=== PATIENT | male | born 1945 | race Caucasian/White ===

== ENCOUNTER 2018-06-01 12:55 | Outpatient (CLI) | payer OTHER | END 2018-06-01 23:59 | disposition home or self-care (01) | LOC: CARD DIAG 12:55 | PROVIDERS: ATTEND Orthopaedic Surgery | DX: I05.8 Other rheumatic mitral valve diseases (principal); I25.9 Chronic ischemic heart disease, unspecified; I25.2 Old myocardial infarction | CPT/HCPCS: 93306 ==

== ENCOUNTER 2024-12-19 13:00 | Inpatient (IN) | payer OTHER, MEDICARE ==
[~2024-12-19] VITALS: Ht 180.3 cm; Wt 106.1 kg
--- NOTE | 2024-12-19 13:42 | ELECTROCARDIOGRAPH REPORT ---
[facility] Test Date: 2024-12-19 Test Time: 13:11:24 Pat Name: MARILY SEARS Department: EMERGENCY ROOM Room: [place] [address] Gender: M It Project Coordinator: ROSY : 1945 Requested By: DANIELA HAWKINS Order Number: [id number] Reading MD: Dr. ELDA Brothers Measurements Intervals [place] Rate: 76 P: 48 NH: 154 QRS: -5 QRSD: 102 T: 44 QT: 432 QTc: 486 Interpretive Statements Sinus rhythm with PACs Multiform ventricular premature complexes Low voltage, precordial leads Borderline prolonged QT interval Baseline wander in lead(s) V2 Electronically Signed On 12-22-2024 17:59:[address] ELDA Brothers Please click the below link to view image of tracing.
--- NOTE | 2024-12-19 13:56 | RADIOLOGY REPORT ---
CHEST RADIOGRAPH Indication: CP Technique: DI CHEST,SINGLE VIEW Comparison: None FINDINGS: The cardiac silhouette is large. The lungs demonstrate perihilar and left basilar airspace opacities. The pulmonary vasculature is prominent. Small left pleural effusion. There is no pneumothorax. IMPRESSION: As above
--- NOTE | 2024-12-19 14:00 | Physician Documentation ---
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 He has been eating dinner with a his at [employer] after they finished she was going to pay the bill when she heard a gurgling sound coming from his throat she looked up out him and saw him stop breathing and became unresponsive for approximately 1 minute. He then began breathing again and returned to baseline quickly after that. He has had this happened once in the past for which he was placed in recovery position and recovered well. She reports that [facility] but she does not know the results Echocardiogram 2019 Overall LVEF is about 55-60%. Normal LV size and thickness. Overall systolic function appears low normal. Mildly dilated RV size with normal function. Trileaflet AV appears moderately sclerotic without stenosis or insufficiency. Mild MV annular calcification without stenosis. Trace regurgitation. TV appears normal with trace regurgitation. No pericardial effusion seen. Medication Reconciliation Allergies: Coded Allergies: No Known Allergies (Unverified , 12/19/24) Review of Systems All Other Systems at this time: Reviewed and Negative Physical Exam Physical Exam Vital Signs: Temperature: 97.5, Source: Oral, Heart Rate: 77, Respiratory Rate: 18, BP: 125/68, Pulse Oximetry: 90, Weight: 110.000 Oxygen Flow Rate: 0 Progress Results/Orders Reviewed/noted all lab results: Yes Results/Orders Orders - DANIELA HAWKINS MD Chest,Single View (12/19/24 13:37) Monitor (12/19/24 13:17) Saline Lock (12/19/24 13:17) Oxygen (12/19/24 13:17) Page Hospitalist (12/19/24 16:03) Fill Out Med Reconciliation (12/19/24 16:03) Completed Orders - DANIELA HAKWINS MD Chest,Single View (12/19/24 13:37) Cbc/Diff (12/19/24 13:17) BMP (12/19/24 13:17) PBNP (12/19/24 13:17) Electrocardiogram (12/19/24 13:17) Hs Troponin I W Calculations (12/19/24 13:17) Hs Troponin I W Calculations (12/19/24 15:17) Hs Troponin I W Calculations (12/19/24 16:17) Vital Signs 12/19/24 12/19/24 12/19/24 12/19/24 13:05 13:30 13:30 15:15 Temp 97.5 Pulse 77 59 Resp 18 12 19 B/P (MAP) 125/68 103/64 (77) Pulse Ox 90 97 97 O2 Delivery Nasal Cannula* O2 Flow Rate 0 4 0 FiO2 36 Laboratory Tests Test 12/19/24 13:29 12/19/24 15:19 12/19/24 16:59 12/19/24 17:14 White Blood Count 6.0 Red Blood Count 3.82 L Hemoglobin 13.6 L Hematocrit 39.6 L Mean Corpuscular Volume 103.9 H Mean Corpuscular Hemoglobin 35.6 H Mean Corpuscular Hemoglobin Concent 34.3 Red Cell Distribution Width 14.4 Platelet Count 163 Mean Platelet Volume 9.1 Neutrophils (%) (Auto) 71.7 Lymphocytes (%) (Auto) 19.2 L Monocytes (%) (Auto) 7.5 Eosinophils (%) (Auto) 1.1 Basophils (%) (Auto) 0.5 Neutrophils # (Auto) 4.3 Lymphocytes # (Auto) 1.1 Monocytes # (Auto) 0.4 Eosinophils # (Auto) 0.1 Basophils # (Auto) 0.0 CBC Comment Sodium Level 141 Potassium Level 3.2 L Chloride Level 105 Carbon Dioxide Level 24.8 Anion Gap 11 Blood Urea Nitrogen 17 Creatinine 1.02 Estimated GFR/1.73 m2 70 BUN/Creatinine Ratio 16.7 Glucose Level 155 H Calcium Level 7.8 L Troponin I High Sensitivity 6 10 15 Pro-B-Type Natriuretic Peptide 403 Albumin 3.0 L Chemistry Comments Troponin I High Sens Percent Delta 66 50 Troponin I Hi Sens Absolute Change 4 5 Hemoglobin A1c 5.4 Urine Comment Drug Screen Comment EKG/XRAY/CT/US/VASC/MRI EKG : Additional Comment EKG independently interpreted by myself time 1:11 p.m. indication syncope normal sinus rhythm rate 76 normal axis normal intervals no ST-elevation Medical Decision Making Additional information obtaine: family Findings 79-year-old male presenting for syncopal episode after dinner. He has history of dysphagia and his did hear a gurgling sound. He potentially may have aspirated and then vagal nerves however he has no clear choking episode. EKG here is nonacute. I will plan to admit him for syncope evaluated Differential Diagnosis Syncope cardiac arrest dysphagia stroke other causes of syncope Departure Disposition: ADMITTED INPATIENT Admitted to Inpatient Unit: to hospitalist Impression: Primary Impression: Syncope Qualified Codes: R55 - Syncope and collapse Referrals: NO PRIMARY CARE PROVIDER (PCP) Signature Scribe Signature: na Attestation: DANIELA Singh MD Dec 19, 2024 14:00
[2024-12-19 14:03] LABS: MEAN PLATELET VOLUME 9.1 FL (7.4-10.4); RED CELL DISTRIBUTION WIDTH 14.4 % (11.5-14.5)
[2024-12-19 14:29] LABS: CREATININE 1.02 MG/DL (0.60-1.10); PRO BRAIN NATRIURETIC PEPTIDE 403 PG/ML (0-450); TOTAL CARBON DIOXIDE 24.8 MMOL/L (24-32); eCRCL 63 ML/MIN; eGFR 70 ML/MIN
--- NOTE | 2024-12-19 17:02 | HISTORY AND PHYSICAL-Residence ---
History & Physical Providers to CC Resident Creating Document: MAYCO PICHARDO RES ~ History of Present Illness Reason for Admit\Complaint: Syncope History of Present Illness This is a 79 year old male with past medical history hypertension, gout, hyperlipidemia, [place] presented to the ED with an episode of syncope. As patient was tired and sleepy, most of the history was taken from his who was present at the bedside. According to his , both of them were at [employer] at around 11:15 p.m. this afternoon having lunch. Patient was doing fine, had his food along with half a glass of beer. When she was ready to pay the check, the noticed that patient had a gurgling sound and was about to pass out. Patient was sitting on a chair and his neck went back and he was about to fall back from his chair when his got up and got him from behind preventing him from falling back. She immediately called for help, when 2 men came and immediately laid the patient flat on the ground, tried to shake him and performed a sternal rub, patient regained back consciousness. reports that patient lost consciousness for about 20-25 seconds. Patient was slightly confused after regaining by consciousness and kept saying that he wanted to go back home, however the restautant immediately called 911 and he was brought to the hospital. reports that patient has prior to 3 episodes of syncope in the past, 1 of them was due to CVA, the the time he had syncopal attack, she was informed that the patient was in AFib. denies any episodes of seizure-like activity, no urinary incontinence, fecal incontinence, tongue biting. Patient says that he felt lightheaded, and nauseous and clammy before the syncopal episode and denies any other complaints of chest pain, palpitations, shortness of breath, headache, weakness, sweating, vomiting. Allergies: Coded Allergies: No Known Allergies (Unverified , 12/19/24) Past Medical History Past Medical History [place] at the age of 29 Hypertension Gout Hyperlipidemia Past Surgical History Surgical History Comment Left knee surgery Back surgery Past Social History Social History Comment Patient used to drink a lot years ago, was drinking on and off since the last couple of years, did not drink much at all since the last month. Patient does not smoke but chews tobacco No other illicit drug use Patient's PCP at [facility] Patient is independent with activities of daily living Patient lives at home with his . Family history- Dad of heart attack at the age of 59 Mother had 2 strokes in her 60s. ROS All Other Systems: Reviewed and Negative Exam Vitals: Vital Signs Date Time Temp Pulse Resp B/P (MAP) Pulse Ox O2 Delivery O2 Flow Rate FiO2 12/19/24 15:15 59 19 103/64 (77) 97 0 12/19/24 13:05 97.5 General: Awake , alert and oriented to time,place, person, not in distress HEENT: Atraumatic, normocephalic, PERRLA, EOMI, anicteric sclera ; pink conjunctiva, moist mucos membranes Neck: Trachea midline. Supple, normal range of motion, no JVD, no lymphadenopathy Chest and Respiratory: Equal breath sounds bilaterally, no tachypnea, wheezing, ronchi,rubs .Chest wall is symmetric and without deformity. Cardiac: S1, S2 heard,Regular rate and rhythm, no murmurs ,no gallops, no rubs. Abdomen: Soft, obese, No guarding or rigidity, normal bowel sounds x4 quadrant, no hepatosplenomegaly MSK: Range of motion of all extremities are normal. There is no joint pain or joint swelling or joint erythema. There is no muscle pain or tenderness or swelling. Extremities: warm, well-perfused, No cyanosis, clubbing, 2+ pulses felt Neurological: Mental status exam: alert and consciousness, orientation, memory, speech - Cranial nerve test: Cranial nerves II-XII intact. - Motor system: normal tone, Power 5/5, no involuntary movements - Sensory system: Intact - Reflex testing: Biceps, triceps and knee reflexes 2+ - Cerebellar: Normal Skin: Warm and dry Psychiatry: Affect and mood are normal Diagnostic Data Last Recorded Lab Results: 12/19/24 1329 12/19/24 1329 Advance Care Planning Advanced Care plannin - 30 Minutes (DNR) Additional Plan Syncope Likely due to orthostatic vs cardiac vs neurologic vs autonomic dysfunction -Patient's vitals are stable BP- 125/68, HR- 50s-70s -Patient's electrolytes -sodium normal, mild hypokalemia -Glucose within normal limits, not hypoglycemic -proBNP normal- 403 -Chest x-ray shows enlarged cardiac silhouette. The lungs demonstrate perihilar and left basilar airspace opacities. The pulmonary vasculature is prominent. Small left pleural effusion. There is no pneumothorax. -EKG showed sinus rhythm with premature ventricular complexes, no ST elevations, depressions, no T-wave changes. -Patient on telemetry monitoring -CT head ordered. Follow-up -Echocardiogram, TSH, U tox, vascular carotid ultrasound, orthostatic vitals ordered. -Urine analysis, lipid profile, HbA1c ordered. Mild hypokalemia- k-3.2 Patient on potassium replacement protocol. Macrocytic anemia- Hb- 13.6, MCV- 103.9 Could be likely due to alcohol consumption. B12, levels ordered. BPH- Patient has a urology appointment in January outpatient. Hyperlipidemia- Lipid profile ordered Continue home medications once med rec is done. Code status: DNR DVT prophylaxis: SubQ heparin Analgesia/sedation: Morphine Line/tube: PIV Nutrition: Regular diet Prognosis: Guarded Disposition- patient on syncopal workup. He is on telemetry monitoring admitted to PCU. Patient seen, examined and discussed with the attending MD Dr Mcmahan. Mayoc Pichardo PGY-1 Date of Service: Dec 19, 2024 Billing Provider: KAREN MCMAHAN MD Common Visit Codes: [id number] INP/OBS CARE (HIGH) Secondary Visit Codes: [id number] CARE PLAN 30 MINUTES MAYCO PICHARDO, RES Dec 19, 2024 17:02 KAREN MCMAHAN MD Dec 21, 2024 06:34
[2024-12-19] MEDS ORDERED: potassium Cl 40MEQ/1/2NS 520ml 520 ML IV PRN (17:05)
[2024-12-19] MEDS ORDERED: mag hydrox/Alum hydrox/simeth 30ml oral suspension PO PRN (17:05)
[2024-12-19] MEDS ORDERED: HYDROcodone/acetaminophen 5mg/325mg tablet PO PRN (17:05)
[2024-12-19] MEDS ORDERED: magnesium sulf-water 4G/100mL 100 ML IV PRN (17:05)
[2024-12-19] MEDS ORDERED: magnesium hydroxide 30ml (MOM) UD suspension PO PRN (17:05)
[2024-12-19] MEDS ORDERED: magnesium sulf-water 2g/50mL 50 ML IV PRN (17:05)
[2024-12-19] MEDS ORDERED: ondansetron/PF 4mg/2ml inj IV PRN (17:05)
[2024-12-19] MEDS ORDERED: magnesium Cl slow-release 64mg tablet PO PRN (17:05)
[2024-12-19] MEDS ORDERED: potassium Cl 20 mEq SR tablet PO PRN (17:05)
[2024-12-19 17:44] LABS: LEUKOCYTE ESTERASE ,URINE NEGATIVE (Neg); NITRITES, URINE NEGATIVE (Neg); OCCULT BLOOD,URINE NEGATIVE (Neg)
[2024-12-19 17:49] LABS: UA COLLECTION TYPE URINAL
[2024-12-19] MEDS: normal saline 1000ml 1,000 ML IV SCH (18:02)
[2024-12-19] MEDS ORDERED: ROSU10TA98 PO (18:15)
[2024-12-19] MEDS ORDERED: ATOR10TA87 PO (18:15)
[2024-12-19] MEDS ORDERED: TAMS-55 PO (18:15)
[2024-12-19] MEDS ORDERED: FURO10VI51 PO (18:15)
[2024-12-19] MEDS ORDERED: ASPI-1264 PO (18:15)
[2024-12-19] MEDS ORDERED: MELO-102 PO (18:15)
[2024-12-19] MEDS ORDERED: ALLO300T8 PO (18:15)
[2024-12-19] MEDS ORDERED: MIRT-142 PO (18:15)
[2024-12-19] MEDS ORDERED: COLC0.6C3 PO (18:15)
[2024-12-19] MEDS ORDERED: FOLI0.4T6 PO (18:15)
[2024-12-19 18:25] LABS: URINE AMPHETAMINE SCREEN NEGATIVE (Neg); URINE BARBITUATE SCREEN NEGATIVE (Neg); URINE BENZODIAZEPINES SCREEN NEGATIVE (Neg); URINE CANNABINOID SCREEN NEGATIVE (Neg); URINE COCAINE SCREEN NEGATIVE (Neg); URINE METHADONE SCREEN NEGATIVE (Neg); URINE OPIATE SCREEN NEGATIVE (Neg); URINE PHENCYCLIDINE SCREEN NEGATIVE (Neg)
--- NOTE | 2024-12-19 18:26 | RADIOLOGY REPORT ---
CLINICAL HISTORY: POSSIBLE CVA TECHNIQUE: Helical scanning was performed of the head from the skull base to the vertex. Multiplanar reconstructions were performed. This exam was performed according to our departmental dose optimization program. Up-to-date CT equipment and radiation dose reduction techniques are utilized as appropriate. CTDI 65 DLP 65 1320 COMPARISON: None FINDINGS: There is no evidence for acute intracranial hemorrhage, acute ischemic changes, mass, mass effect, or extra-axial fluid collection. There is no hydrocephalus or midline shift. There is no effacement of the cerebral sulci and basal subarachnoid cisterns. The moody-white matter differentiation is well maintained. The imaged paranasal sinuses are clear. There is an old left thalamic infarct. There has been bilateral cataract extraction. IMPRESSION: No acute intracranial abnormality seen. Old left thalamic infarct.
[2024-12-19] MEDS: potassium Cl 20 mEq SR tablet PO PRN (20:05)
[2024-12-19] MEDS: K and/or MAG REPLACEMENT MC SCH (20:07)
[2024-12-19 20:30] VITALS: BP_SYST 110; BP_SYST 116; BP_SYST 125; BP_DIAS 56; BP_DIAS 63; BP_DIAS 74; PULSE 63; PULSE 65; PULSE 88; RESP 16; TEMP 98.5; O2SAT 65; O2SAT 95
[2024-12-19] MEDS: docusate sod 100mg capsule PO SCH (20:50)
[2024-12-19] MEDS: heparin, porcine 5000 units/ml vial SQ SCH (20:51)
[2024-12-19 22:00] VITALS: BP 108/57; PULSE 61; RESP 19; TEMP 98.6; O2SAT 95
[2024-12-20] VITALS (7 sets, daily range): BP systolic 96–123; BP diastolic 35–72; PULSE 57–89; RESP 13–20; TEMP 96.3–98.9; O2SAT 94–98
[2024-12-20 06:53] LABS: MEAN PLATELET VOLUME 9.0 FL (7.4-10.4); RED CELL DISTRIBUTION WIDTH 14.5 % (11.5-14.5)
[2024-12-20 07:20] LABS: CHOL/HDL RATIO 3.0 (0.00-4.99); CREATININE 0.88 MG/DL (0.60-1.10); LDL CHOLESTEROL 55 MG/DL (50-100); TOTAL CARBON DIOXIDE 24.1 MMOL/L (24-32); eCRCL 73 ML/MIN; eGFR 84 ML/MIN
[2024-12-20] MEDS ORDERED: ASPI-1264 PO (09:20)
[2024-12-20] MEDS: MELOXICAM 7.5 MG TABLET PO SCH (09:44)
--- NOTE | 2024-12-20 11:05 | VASCULAR REPORT ---
Indication: Syncope Technique: Real-time ultrasound images of the neck vessels with moody-scale, color and wave Doppler were obtained. Comparison: None Findings: There is moderate to extensive plaque most pronounced within the bilateral carotid bulb/proximal ICA. The following peak systolic velocities were recorded in cm/sec: Right internal carotid: 135 Right common carotid: 90 Right external carotid: 106 Right internal/common carotid ratio: 1.5 Left internal carotid: 166 Left common carotid: 96 Left external carotid: 197 Left internal/common carotid ratio: 1.8 Right vertebral artery: Patent with normal antegrade direction of flow. Left vertebral artery: Patent with normal antegrade direction of flow. Impression: Approximately 50-69% stenosis of the bilateral internal carotid arteries by velocity criteria. Recommend CT angiogram neck to evaluate. Moderate to extensive plaque within the bilateral carotid bulb/proximal ICA.
--- NOTE | 2024-12-20 14:49 | PROGRESS NOTE- Residence ---
Progress Note - Resident Providers to CC Resident Creating Document: MAYCO PICHARDO, RES ~ Antibiotic Timeout Antibiotic Ordered?: No Subjective Patient was seen and examined at the bedside today. Patient is feeling well, not dizzy, not lightheaded, has no new complaints. No acute overnight events reported Objective Vital Signs Date Time Temp Pulse Resp B/P (MAP) Pulse Ox O2 Delivery O2 Flow Rate FiO2 12/20/24 08:00 13 95 Room Air 12/20/24 06:00 61 12/20/24 02:00 96.3 104/50 (68) 12/19/24 19:37 0 12/19/24 13:30 36 Result Diagram: 12/20/24 0557 12/20/24 0557 Awake , alert and oriented to time,place, person, not in distress HEENT: Atraumatic, normocephalic, PERRLA, EOMI, anicteric sclera ; pink conjunctiva, moist mucos membranes Neck: Trachea midline. Supple, normal range of motion, no JVD, no lymphadenopathy Chest and Respiratory: Equal breath sounds bilaterally, no tachypnea, wheezing, ronchi,rubs .Chest wall is symmetric and without deformity. Cardiac: S1, S2 heard,Regular rate and rhythm, no murmurs ,no gallops, no rubs. Abdomen: Soft, obese, no tenderness no rigidity, MSK: Range of motion of all extremities are normal. There is no joint pain or joint swelling or joint erythema. There is no muscle pain or tenderness or swelling. Extremities: warm, well-perfused, No cyanosis, clubbing, 2+ pulses felt Neurological: Mental status exam: alert and consciousness, orientation, memory, speech - Cranial nerve test: Cranial nerves II-XII intact. - Motor system: normal tone, Power 5/5, no involuntary movements - Sensory system: Intact - Reflex testing: Biceps, triceps and knee reflexes 2+ - Cerebellar: Normal Skin: Warm and dry Psychiatry: Affect and mood are normal Plan Plan Syncope Likely due to neurologic vs autonomic dysfunction Possible seizures -suspecting seizure as patient had an episode of urinary incontinence and post ictal confusion. For which we ordered any EEG -Patient's vitals are stable BP- 125/68, HR- 50s-70s -Orthostatics negative -Patient's electrolytes -sodium normal, potassium normal -HbA1c- 5.4. Glucose within normal limits. -lipid panel normal -proBNP normal- 403 -EKG showed sinus rhythm with premature ventricular complexes, no ST elevations, depressions, no T-wave changes. -in view of possible seizure, EEG ordered. -patient's telemetry showed sinus rhythm with no evidence of arrhythmias. -CT head shows no acute intracranial abnormality. Old left thalamic infarct. MRI ordered, follow-up -carotid artery ultrasound shows Approximately 50-69% stenosis of the bilateral internal carotid arteries by velocity criteria. Moderate to extensive plaque within the bilateral carotid bulb/proximal ICA. We are following up with CTA neck. -TSH within normal limits -U tox negative, urine analysis negative for UTI Mild hypokalemia resolved k-3.7 Patient on potassium replacement protocol. We will continue to monitor her labs Macrocytic anemia- Hb- 13.6, MCV- 103.9 Could be likely due to alcohol consumption. B12, levels ordered. BPH- Patient has a urology appointment in January outpatient. Patient on tamsulosin 0.4 mg Hyperlipidemia- Lipid profile normal Continue atorvastatin 40 mg Gout Not in acute flare Patient on allopurinol 300 mg Code status: DNR DVT prophylaxis: SubQ heparin Analgesia/sedation: Morphine Line/tube: PIV Nutrition: Regular diet Prognosis: Guarded Disposition- patient on syncopal workup. He is on telemetry monitoring admitted to PCU. Patient seen, examined and discussed with the attending MD Dr Mcmahan. Mayco Pichardo PGY-1 Date of Service: Dec 20, 2024 Billing Provider: KAREN MCMAHAN MD Common Visit Codes: [id number] INP/OBS CARE(HIGH) MAYCO PICHARDO, RES Dec 20, 2024 14:49 KAREN MCMAHAN MD Dec 21, 2024 06:35
--- NOTE | 2024-12-20 18:20 | PROCEDURE NOTE ---
Procedure Note Providers to CC ~ Interpretation: [place] EEG Note # Demographics Type of EEG Read: - Routine EEG - video Patient Location: Inpatient First Name: Jean-Claude Last Name: Yariel Date of : 1945 Age: 79 Gender: Male Facility: [facility] Time of Initial Page (): 12/20/2024 13:28 First Contact with Site (): 12/20/2024 13:28 # EEG Interpretation Start Time of EEG Read (): 12/20/2024 13:54 Stop Time of EEG Read (): 12/20/2024 14:17 Duration: 0h 23m Technical Details: - The EEG electrodes were placed using the standard International 10-20 system of electrode placement. Video and an accessory EKG lead were used during the course of this study. - This study was recorded using the [employer] EEG software Indication: - seizure # Description Phases Captured: - drowsy Predominant Frequencies: - theta (4-7 Hz) - abundant (50-89%) Amplitude: normal Reactivity: yes Variability: yes Continuity: continuous # Abnormalities Epileptiform Abnormalities: - NOT present Focal Slowing: no Seizure: - NOT present Artifact: Significant lead artifact limiting interpretation. # Impression Impression: abnormal 1. Diffuse Slowing Significant lead artifact limiting interpretation. # Clinical Correlation Clinical Correlation: Diffuse slowing is non-specific and may be seen in the setting of diffuse cerebral dysfunction; such as toxic/metabolic/infectious encephalopathy or heavily sedating medication use. # Logistics Telemedicine: remote EEG review: EEG reviewed remotely # Demographics First Name: Jean-Claude Last Name: Yariel Facility: [facility] VAL KING MD Dec 20, 2024 18:20
--- NOTE | 2024-12-20 18:31 | RADIOLOGY REPORT ---
EXAM: CT CTA NECK W/ IV CONTRAST DATE OF SERVICE: 12/20/2024 04:53 PM ORDERING PHYSICIAN: KAREN MCMAHAN RES REASON FOR EXAM: CAROTID ARTERY STENOSIS TECHNIQUE: CTA of the neck was performed after the administration of contrast . Axial images of the head and neck are obtained. Coronal and sagittal images were then reformatted for review. MIP reformats were obtained and reviewed. COMPARISON: Carotid ultrasound from today FINDINGS: FINDINGS: The right common carotid artery demonstrates no high-grade stenosis. There is moderate calcification of the right carotid bulb. Right internal carotid artery demonstrates moderate stenosis of the proximal right ICA, approximately 60% stenosis The left common carotid artery demonstrates moderate calcification of the left carotid bulb Left internal carotid artery demonstrates mild, less than 50% stenosis of the proximal left ICA The right vertebral artery demonstrates no high-grade stenosis. The left vertebral artery demonstrates no high-grade stenosis. Small left mastoid effusion. Severe cervical degenerative disc disease. IMPRESSION: Moderate calcification of the bilateral carotid bulbs. Approximately 60% stenosis of the proximal right ICA. Less than 50% stenosis of the proximal left ICA. Small left mastoid effusion.
--- NOTE | 2024-12-20 19:38 | CARDIOLOGY REPORT ---
APPROVED REPORT EXAM: Comprehensive 2D, Doppler, and color-flow Echocardiogram. Patient Location: [facility] Blood Pressure: 104/50 mmHg Heart Rate: 72 bpm Rhythm: NSR Indications Syncope Hypertension Hx ID Atrial Fibrillation No paediatric thoracic physician No previous echo 2D Dimensions LA Diam 4.6 cm IVSd 1.3 (0.7-1.1cm) LVDd 5.6 cm PWd 1.2 (0.7-1.1cm) IVSs 1.8 (0.8-1.2cm) LVDs 3.7 (2.5-4.0cm) Aortic Root(2D) 3.6 cm PWs 1.6 (0.8-1.2cm) LVOT Diameter 2.11 (1.8-2.4cm) LVEF(%) 63.4 (>50%) Ao Asc Diam. 3.17 cm IVC 15.52 mm FS (%) 34.8 % SV 97.5 ml CO 6.1 L/min M-Mode Dimensions Aortic Cusp Exc 1.28 (1.5-2.0cm) MV EPSS 1.1 (<0.5cm) Aortic Valve AoV Peak Rodrigue. 246.7 cm/s AoV VTI 51.0 cm AO Peak GR. 24.3 mmHg AO Mean GR. 11 mmHg LVOT VTI 31.41 cm LVOT Peak Rodrigue. 129.4 cm/s SUMMER(VTI)/BSA 2.15 cm2/m2 SUMMER (VTI) 2.15 cm2 AI P 1/2 Time 392 ms AV DI 0.62 % Mitral Valve MV E Velocity 78.9 cm/s MV Peak Gr. 6 mmHg MV DECEL TIME 208 ms MV A Velocity 100.4 cm/s MV PHT 68 ms E/A Ratio 0.8 MVA (PHT) 3.24 cm2 MV VMax 120.1 cm/s TDI Medial E' P. V 7.70 cm/s E/Medial E' 10.2 Tricuspid Valve TR P. Velocity 286 cm/s RAP ESTIMATE 10 mmHg TR Peak Gr. 33 mmHg RVSP 43 mmHg Pulmonary Vein S1 Velocity 71.8 cm/s D2 Velocity 29.9 cm/s PVa Velocity 28.2 cm/s PVa Duration 92 msec LEFT VENTRICLE Normal LV size and function. Mild concentric hypertrophy. Over LVEF is 65%. RIGHT VENTRICLE RV appears mildly dilated with normal contractility. RVSP is estimated at 43 mmHG. ATRIA Left atrium is moderately dilated. AORTIC VALVE Trileaflet AV is calcified with no significant stenosis. Moderate insufficiency. MITRAL VALVE MV is thickened with mild annular calcification and no stenosis. Mild mitral regurgitation. TRICUSPID VALVE The tricuspid valve is normal in structure. Trace tricuspid regurgitation. PULMONIC VALVE The pulmonary valve is normal in structure. Trace pulmonic insufficiency. GREAT VESSELS The aortic root is normal in size. The ascending aorta is normal in size. The IVC is normal in size and collapses >50% with inspiration. PERICARDIUM There is no pericardial effusion. Other Information Study Quality: Adequate Conclusion Over LVEF is 65%. Normal LV size and function. Mild concentric hypertrophy. RV appears mildly dilated with normal contractility. RVSP is estimated at 43 mmHG. Trileaflet AV is calcified with no significant stenosis. Moderate insufficiency. Mild mitral regurgitation. Trace tricuspid regurgitation. Trace pulmonic insufficiency. There is no pericardial effusion.
[2024-12-21] VITALS (9 sets, daily range): BP systolic 102–125; BP diastolic 46–108; PULSE 52–84; RESP 12–23; TEMP 97.6–98.1; O2SAT 91–95
[2024-12-21 06:01] LABS: MEAN PLATELET VOLUME 8.6 FL (7.4-10.4); RED CELL DISTRIBUTION WIDTH 14.3 % (11.5-14.5)
[2024-12-21 06:16] LABS: CREATININE 0.90 MG/DL (0.60-1.10); TOTAL CARBON DIOXIDE 24.6 MMOL/L (24-32); eCRCL 71 ML/MIN; eGFR 81 ML/MIN
--- NOTE | 2024-12-21 15:19 | RADIOLOGY REPORT ---
CLINICAL HISTORY: POSSIBLE TIA TECHNIQUE: Routine multiplanar imaging of the brain was performed without gadolinium contrast. COMPARISON: CT CT HEAD on DOS: 12/19/24 FINDINGS: There is no abnormal restricted diffusion to suggest acute infarction. There is mild brain volume loss. Scattered T2 hyperintense foci within the white matter both cerebral hemispheres is most compatible with a mild burden of nonspecific chronic small vessel ischemic change. There is an old left thalamic infarct. There is no evidence for acute ischemic changes, mass, mass effect, or extra- axial fluid collection. There is no hydrocephalus or midline shift. The cerebral sulci and subarachnoid cisterns are not effaced. There is a small left mastoid effusion. There has been bilateral cataract extraction. The midline structures, including the corpus callosum, are unremarkable. The intracranial flow voids are maintained. IMPRESSION: No acute intracranial abnormality seen. No evidence for acute infarct. Mild brain volume loss. Mild chronic small vessel ischemic change. Old left thalamic infarct. Small left mastoid effusion. Bilateral cataract extraction.
--- NOTE | 2024-12-21 19:22 | PROGRESS NOTE- Residence ---
Progress Note - Resident Providers to CC Resident Creating Document: MAYCO PICHARDO, RES ~ Antibiotic Timeout Antibiotic Ordered?: No Subjective Patient was seen and examined at the bedside today. Patient is feeling well, not dizzy, not lightheaded, has no new complaints. No acute overnight events reported Objective Vital Signs Date Time Temp Pulse Resp B/P (MAP) Pulse Ox O2 Delivery O2 Flow Rate FiO2 12/21/24 11:00 98.0 70 14 125/71 (89) 94 Room Air 12/19/24 19:37 0 12/19/24 13:30 36 Result Diagram: 12/21/24 0543 12/21/24 0543 Awake , alert and oriented to time,place, person, not in distress HEENT: Atraumatic, normocephalic, PERRLA, EOMI, anicteric sclera ; pink conjunctiva, moist mucos membranes Neck: Trachea midline. Supple, normal range of motion, no JVD, no lymphadenopathy Chest and Respiratory: Equal breath sounds bilaterally, no tachypnea, wheezing, ronchi,rubs .Chest wall is symmetric and without deformity. Cardiac: S1, S2 heard,Regular rate and rhythm, no murmurs ,no gallops, no rubs. Abdomen: Soft, obese, no tenderness no rigidity, MSK: Range of motion of all extremities are normal. There is no joint pain or joint swelling or joint erythema. There is no muscle pain or tenderness or swelling. Extremities: warm, well-perfused, No cyanosis, clubbing, 2+ pulses felt Neurological: Mental status exam: alert and consciousness, orientation, memory, speech - Cranial nerve test: Cranial nerves II-XII intact. - Motor system: normal tone, Power 5/5, no involuntary movements - Sensory system: Intact - Reflex testing: Biceps, triceps and knee reflexes 2+ - Cerebellar: Normal Skin: Warm and dry Psychiatry: Affect and mood are normal Plan Plan Syncope Likely due to autonomic dysfunction Possible seizures -stroke ruled out -suspecting seizure as patient had an episode of urinary incontinence and post ictal confusion. For which we ordered any EEG -Patient's vitals are stable BP- 125/68, HR- 50s-70s -Orthostatics negative -Patient's electrolytes -sodium normal, potassium normal -HbA1c- 5.4. Glucose within normal limits. -lipid panel normal -proBNP normal- 403 -EKG showed sinus rhythm with premature ventricular complexes, no ST elevations, depressions, no T-wave changes. -in view of possible seizure, EEG ordered. -patient's telemetry showed sinus rhythm with no evidence of arrhythmias. -CT head shows no acute intracranial abnormality. Old left thalamic infarct. MRI ordered, follow-up -carotid artery ultrasound shows Approximately 50-69% stenosis of the bilateral internal carotid arteries by velocity criteria. Moderate to extensive plaque within the bilateral carotid bulb/proximal ICA. We are following up with CTA neck. -TSH within normal limits -U tox negative, urine analysis negative for UTI -MRI head- No acute intracranial abnormality seen. No evidence for acute infarct. Mild brain volume loss. Mild chronic small vessel ischemic change. Old left thalamic infarct. -tele neurology has been consulted. Follow-up. Mild hypokalemia resolved k-3.9 Patient on potassium replacement protocol. We will continue to monitor her labs Macrocytic anemia- Hb- 13.6, MCV- 103.9 Could be likely due to alcohol consumption. B12, levels ordered. BPH- Patient has a urology appointment in January outpatient. Patient on tamsulosin 0.4 mg Hyperlipidemia- Lipid profile normal Continue atorvastatin 40 mg Gout Not in acute flare Patient on allopurinol 300 mg Code status: DNR DVT prophylaxis: SubQ heparin Analgesia/sedation: Morphine Line/tube: PIV Nutrition: Regular diet Prognosis: Guarded Disposition- patient on syncopal workup. He is on telemetry monitoring admitted to PCU. In view of possible seizures, tele neurology has been consulted. Patient seen, examined and discussed with the attending MD Dr Mcmahan. Mayco Pichardo PGY-1 Date of Service: Dec 21, 2024 Billing Provider: KAREN MCMAHAN MD Common Visit Codes: 42996-[id number] INP/OBS CARE(HIGH) MAYCO PICHARDO, RES Dec 21, 2024 19:22 KAREN MCMAHAN MD Dec 23, 2024 07:12
--- NOTE | 2024-12-21 23:31 | CONSULTATION REPORT ---
History of Present Illness Providers to CC ~ Reason for Admit\Admit Dx: Syncope Allergies: Coded Allergies: No Known Allergies (Unverified , 12/19/24) Home Medications Home Medications Active Aspirin* (Aspirin) 325 Mg Tablet 1 Tab PO DAILY 30 Days Reported Lasix (Furosemide) 10 Mg/Ml Vial 10 Mg PO DAILY Folic Acid* (Folic Acid) 0.4 Mg Tablet 1 Tab PO DAILY 30 Days Flomax* (Tamsulosin HCl) 0.4 Mg Cap.sr.24h 1 Cap PO DAILY 30 Days Lipitor* (Atorvastatin Calcium) 10 Mg Tablet 1 Tab PO DAILY 30 Days Remeron (Mirtazapine) 15 Mg Tablet 15 Mg PO Meloxicam 15 Mg Tablet 1 Tab PO DAILY 30 Days Colchicine 0.6 Mg Capsule 1 Cap PO PRN 30 Days Rosuvastatin Calcium 10 Mg Tablet 1 Tab PO DAILY 30 Days Allopurinol 300 Mg Tablet 1 Tab PO DAILY 30 Days Physical Exam Last Vital Signs Recorded: Temperature: 98.1, Source: Oral, Heart Rate: 68, Respiratory Rate: 16, BP: 113/71, Pulse Oximetry: 95, Weight: 106.100 Results Diagram Lab Result Diagram: 12/21/24 0543 12/21/2443 Assessment/Plan Additional Plan [facility] Neuro Note # Demographics Consult Type: General Neurology Patient Location: Inpatient First Name: Jean-Claude Last Name: Yariel Date of : 1945 Age: 79 Gender: Male Facility: [facility] Time of Initial Page (): 12/21/2024 23:07 First Contact with Site (): 12/21/2024 23:07 # HPI History: 79-year-old who said he got light-headed then woke up on the floor. his said he was out for about 45 seconds. patient said when he came to he felt okay and was ready to go. no previous history of stroke or seizures. He denies any headache or vision changes with the episode. He has had about 3 previous episodes in the past # Scores Time of exam and NIHSS (): 12/21/2024 23:09 Level of Consciousness 1a: [0] = Alert; keenly responsive LOC Questions 1b: [0] = Answers both questions correctly LOC Commands 1c: [0] = Performs both tasks correctly Best Gaze 2: [0] = Normal Visual 3: [0] = No visual loss Facial Palsy 4: [0] = Normal symmetrical movements Motor Arm Left 5a: [0] = No drift Motor Arm Right 5b: [0] = No drift Motor Leg Left 6a: [0] = No drift Motor Leg Right 6b: [0] = No drift Limb Ataxia 7: [0] = Absent Sensory 8: [0] = Normal Best Language 9: [0] = No aphasia Dysarthria 10: [0] = Normal Extinction and Inattention 11: [0] = No abnormality NIHSS Total: 0 # PMH-FH-SH Past Medical History: - hypertension - hyperlipidemia [place] # Data Time Head CT personally read by me (Pixplit): 12/21/2024 23:[address]: - no bleed - per radiologist read Time CTA personally reviewed by me (Pixplit): 12/21/2024 23:22 CTA Neck: patent vessels MRI: no acute ischemia # Assessment Impression: - Syncope Suspect may be more cardiac in etiology vs neurologic. CTA neck neg, MRI brain neg, EEG neg for seizures # Plan Diagnostic Test: telemetry, check orthostatics, would strongly consider tilt-table testing if available Other: - If patient has any neurological deterioration please call me back immediately # Demographics First Name: Jean-Claude Last Name: Yariel Facility: [facility] DILIA AYOUB Jr., MD Dec 21, 2024 23:31
[2024-12-22 06:00] VITALS: BP 144/57; PULSE 56; RESP 16; TEMP 98.6; O2SAT 95
[2024-12-22 07:02] LABS: MEAN PLATELET VOLUME 8.4 FL (7.4-10.4); RED CELL DISTRIBUTION WIDTH 14.4 % (11.5-14.5)
[2024-12-22 07:16] LABS: CREATININE 1.01 MG/DL (0.60-1.10); TOTAL CARBON DIOXIDE 24.3 MMOL/L (24-32); eCRCL 63 ML/MIN; eGFR 71 ML/MIN
[2024-12-22 08:00] VITALS: RESP 16; O2SAT 96
[2024-12-22 11:00] VITALS: BP 128/76; PULSE 65; RESP 14; TEMP 98.1; O2SAT 93
--- NOTE | 2024-12-22 14:13 | CONSULTATION REPORT - RESIDENT ---
Consult Providers to CC Resident Creating Document: JARON MONREAL YURY NAVARRO History of Present Illness Reason for Admit\Complaint: Syncope History of Present Illness 79 years old male past medical history of CVA, hypertension, gout, hyperlipidemia, reported history of AFib 20 years ago presented to the ED with chief complaint of an episode of syncope after the patient finished eating at a restaurant with his . The patient's is at the bedside and stated that he witnessed the episode of syncope. She reported that the finished eating and finishing the bill when she suddenly heard the patient gurgling and when she looked at him the patient had his eyes closed and was falling back on his chair all the had to get up and hold him to protect him from falling. She reported that there were two other gentleman who helped Taryn the patient down on the ground and by the in the patient woke up. She reported that the patient was out of consciousness for at least 25 seconds. The patient's also reported that she noted that the the patient wet himself during this episode. The patient's reported that the patient had a total of four episodes of syncope in the past. She reports that the 1st episode syncope was 20 years ago after an episode of heavy alcohol drinking. She reported that the patient had a mean after drinking heavily and lost consciousness and fell down. She reported that the 1st her the patient was diagnosed with the atrial fibrillation. She also reported that he had another episode of syncope when he was diagnosed with a stroke in 2019. She reported that there was no significant cardiac workup done back then. The 3rd episode was one year ago when the patient was diagnosed with COVID and was then discharged home. He was taking a shower and was found unconscious in the shower by his . He does not recall why he became unconscious and how long he was out of it. Allergies: Coded Allergies: No Known Allergies (Unverified , 12/19/24) Home Medications Home Medications Active Aspirin* (Aspirin) 325 Mg Tablet 1 Tab PO DAILY 30 Days Reported Lasix (Furosemide) 10 Mg/Ml Vial 10 Mg PO DAILY Folic Acid* (Folic Acid) 0.4 Mg Tablet 1 Tab PO DAILY 30 Days Flomax* (Tamsulosin HCl) 0.4 Mg Cap.sr.24h 1 Cap PO DAILY 30 Days Remeron (Mirtazapine) 15 Mg Tablet 15 Mg PO Meloxicam 15 Mg Tablet 1 Tab PO DAILY 30 Days Colchicine 0.6 Mg Capsule 1 Cap PO PRN 30 Days Rosuvastatin Calcium 10 Mg Tablet 1 Tab PO DAILY 30 Days Allopurinol 300 Mg Tablet 1 Tab PO DAILY 30 Days Past Medical History Past Medical History CVA Paroxysmal atrial fibrillation 20 years ago Hypertension Gout Hyperlipidemia Past Surgical History Surgical History Comment Left knee surgeon Back surgery Past Social History Social History Comment History of heavy drinking. Was trying to cut down on alcohol. He drank only two beers in the last two months after he was advised by his PCP. Chews tobacco Denied illicit drug use Lives at home with his . ROS ROS As stated above in the HPI, otherwise all systems are reviewed and negative. Exam Vitals: Vital Signs Date Time Temp Pulse Resp B/P (MAP) Pulse Ox O2 Delivery O2 Flow Rate FiO2 12/22/24 11:00 98.1 65 14 128/76 (93) 93 Room Air 12/19/24 19:37 0 12/19/24 13:30 36 General: Awake , alert and oriented to time,place, person, not in distress HEENT: Atraumatic, normocephalic, PERRLA, EOMI, anicteric sclera ; pink conjunctiva, moist mucos membranes Neck: Trachea midline. Supple, normal range of motion, no JVD, no lymphadenopathy Chest and Respiratory: Equal breath sounds bilaterally, no tachypnea, wheezing, ronchi,rubs .Chest wall is symmetric and without deformity. Cardiac: S1, S2 heard,Regular rate and rhythm, no murmurs ,no gallops, no rubs. Abdomen: Soft, obese, No guarding or rigidity, normal bowel sounds x4 quadrant, no hepatosplenomegaly MSK: Range of motion of all extremities are normal. There is no joint pain or joint swelling or joint erythema. There is no muscle pain or tenderness or swelling. Extremities: warm, well-perfused, No cyanosis, clubbing, 2+ pulses felt Neurological: Mental status exam: alert and consciousness, orientation, memory, speech - Cranial nerve test: Cranial nerves II-XII intact. - Motor system: normal tone, Power 5/5, no involuntary movements - Sensory system: Intact - Reflex testing: Biceps, triceps and knee reflexes 2+ - Cerebellar: Normal Skin: Warm and dry Psychiatry: Affect and mood are normal Diagnostic Data Last Recorded Lab Results: [id number] Additional Plan 1. Syncope CT scan of the head was negative for any intracranial abnormalities, an old left thalamic infarcts seen. CTA of the neck shows moderate calcification of bilateral carotid bulbs with a approximately 60% stenosis of the right proximal internal carotid artery and less than 50% stenosis in the left ICA. MRI of the brain is negative for any acute intracranial abnormalities. There is no evidence of acute infarct. There is old left thalamic infarct noted. The patient's vitals has been stable since admission. TSH 2.79, B12 796, A1c 5.4. Electrolytes no significant abnormality noted. Troponins has been negative. ProBNP within normal limits Echocardiography shows left ventricular ejection fraction of 65%, RVSP 43 mmHg, right ventricle concentric hypertrophy noted. The patient will require outpatient event monitoring and outpatient Dana stress test. We will if further evaluate the patient to see if he requires a loop recorder placed. Continue aspirin and statin in view of the patient's coronary artery stenosis. 2. Paroxysmal AFib The patient's reports that he was diagnosed with paroxysmal AFib 20 years ago. He is not on any treatment for the AFib and never had any other recurrences. The patient was not noted to be in atrial fibrillation during this admission. We will follow up in outpatient setting with the event monitoring. 3. Other comorbidities History of CVA Hypertension Hyperlipidemia Continue management per primary care team. CODE STATUS: DNR DVT prophylaxis: SubQ heparin GI prophylaxis: None Disposition: Anticipate discharge home in the next 24 hours. Follow up in the Cardiology Clinic for event monitor and stress test. Jaron Monreal MD Internal Medicine Resident, PGY-3 Patient seen and examined by Dr. uJlio ROCK prior to his discharge. All his workup so far reviewed. Nature of the problem discussed with patient and his . Patient will have event monitor next week followed by a stress testing and subsequently would recommend loop recorder if none of the workup shows the cause of his syncope. Risks benefits alternative options discussed in detail with the patient and his . They understand and agree with the plan. Sepsis Screening Reassessment Date: Dec 22, 2024 Date of Service: Dec 22, 2024 Billing Provider: CRYSTAL DOVE MD, SURYA PRATIK, RES Dec 22, 2024 14:13 CRYSTAL DOVE MD Dec 22, 2024 18:30
--- NOTE | 2024-12-22 19:42 | DISCHARGE SUMMARY-Residence ---
Discharge Summary Providers to Resident Creating Document: ELISEOOTISZOEYURY ALEMAN ~ Discharge Summary Admission Diagnosis: Syncope Hospital Course DATE OF ADMISSION: 12/19/24 DATE OF DISCHARGE: 12/22/24 Discharge Diagnosis\Comment: Syncope Likely due to autonomic dysfunction Possible seizures Mild hypokalemia resolved Macrocytic anemia- BPH Hyperlipidemia Gout Operations\Procedures: none Consultants: Certified Surgical Technician and Tele Neurologist. Complications: none Condition on DC: Stable Continued Medications: Allopurinol (Allopurinol) 300 Mg Tablet 1 TAB PO DAILY for 30 Days, #30 TAB Aspirin* (Aspirin*) 325 Mg Tablet 1 TAB PO DAILY for 30 Days, #30 TAB Colchicine (Colchicine) 0.6 Mg Capsule 1 CAP PO PRN for 30 Days, #30 CAP 0 Refills Folic Acid* (Folic Acid*) 0.4 Mg Tablet 1 TAB PO DAILY for 30 Days, #30 TAB Furosemide (Lasix) 10 Mg/Ml Vial 10 MG PO DAILY, EACH Meloxicam (Meloxicam) 15 Mg Tablet 1 TAB PO DAILY for 30 Days, #30 TAB 0 Refills Mirtazapine (Remeron) 15 Mg Tablet 15 MG PO, TAB Rosuvastatin Calcium (Rosuvastatin Calcium) 10 Mg Tablet 1 TAB PO DAILY for 30 Days, #30 TAB 0 Refills Tamsulosin Hcl* (Flomax*) 0.4 Mg Cap.sr.24h 1 CAP PO DAILY for 30 Days, #30 CAP Discontinued Medications: Atorvastatin Calcium* (Lipitor*) 10 Mg Tablet 1 TAB PO DAILY for 30 Days, #30 TAB Discharge Summary: Hospital Course This is a 79 year old male with past medical history hypertension, gout, hyperlipidemia, [place] presented to the ED with an episode of syncope.In view of this syncopal work up was performed, CT head did not show any acute abnormality,orthostatic vitals were negative,MRI head did not show any No acute intracranial abnormality and No evidence for acute infarct.Head/NECK CTA showed Moderate calcification of the bilateral carotid bulbs.Approximately 60% stenosis of the proximal right ICA, Less than 50% stenosis of the proximal left ICA, In view of history of urinary incontience and postictal confusion seizures were suspected, EEG WAS ordered which did not show any seizure activity,tele neuro was consulted who suspected syncope, may be more cardiac in etiology vs neurologyand suggest Tilt table testing,Cardiology was also consulted who recommended who recommended that patient will require outpatient event m onitoring and outpatient Dana stress test.Patient also received aspirin and statin during hospitalization. Apart from that patient also had hypokalemia for which patient was managed as per K replacement protocol and for his chronic condition BPH and Gout, home medication tamsulosin and allopurinol was continued. Patient was stable and ready for discharge.and was also counselled to avoid driving Discharge Instructions CALL DR DOVE'S OFFICE: [address] [place] [id number], . AND MAKE AN APPOINTMENT FOR NEXT WEEK STRESS TEST AND EVENT MONITOR. HE IS AWARE ABOUT YOU , HIS RESIDENT DOCTOR HAS SEEN YOU AND TALK TO HIM ABOUT YOU. CONTINUE Aspirin , STATIN. FOLLOW UP WITH PCP ABOUT THE DOSE OF Aspirin, WE ARE CURRENTLY CONTINUING THE SAME HOME DOSE. Avoid Driving Physical Examination Awake , alert and oriented to time,place, person, not in distress HEENT: Atraumatic, normocephalic, PERRLA, EOMI, anicteric sclera ; pink conjunct [place], moist mucos membranes Neck: Trachea midline. Supple, normal range of motion, no JVD, no lymphadenopathy Chest and Respiratory: Equal breath sounds bilaterally, no tachypnea, wheezing, ronchi,rubs .Chest wall is symmetric and without deformity. Cardiac: S1, S2 heard,Regular rate and rhythm, no murmurs ,no gallops, no rubs. Abdomen: Soft, obese, no tenderness no rigidity, MSK: Range of motion of all extremities are normal. There is no joint pain or joint swelling or joint erythema. There is no muscle pain or tenderness or swelling. Extremities: warm, well-perfused, No cyanosis, clubbing, 2+ pulses felt Neurological - Cranial nerve test: Cranial nerves II-XII intact. - Motor system: normal tone, Power 5/5, no involuntary movements - Sensory system: Intact - Reflex testing: Biceps, triceps and knee reflexes 2+ - Cerebellar: Normal Skin: Warm and dry Psychiatry: Affect and mood are normal Laboratory Tests Test 12/22/24 06:22 White Blood Count 4.6 X10'3 Red Blood Count 3.84 X10'6 Hemoglobin 13.7 g/dl Hematocrit 39.8 % Mean Corpuscular Volume 103.6 FL Mean Corpuscular Hemoglobin 35.7 PG Mean Corpuscular Hemoglobin Concent 34.4 g/dL Red Cell Distribution Width 14.4 % Platelet Count 170 X10'3 Mean Platelet Volume 8.4 FL Neutrophils (%) (Auto) 39.9 % Lymphocytes (%) (Auto) 44.5 % Monocytes (%) (Auto) 10.1 % Eosinophils (%) (Auto) 4.5 % Basophils (%) (Auto) 1.0 % Neutrophils # (Auto) 1.8 X10'3 Lymphocytes # (Auto) 2.0 X10'3 Monocytes # (Auto) 0.5 X10'3 Eosinophils # (Auto) 0.2 X10'3 Basophils # (Auto) 0.0 X10'3 CBC Comment Sodium Level 143 MMOL/L Potassium Level 4.3 MMOL/L Chloride Level 110 MMOL/L Carbon Dioxide Level 24.3 MMOL/L Anion Gap 9 Blood Urea Nitrogen 20 MG/DL Creatinine 1.01 MG/DL Estimated GFR/1.73 m2 71 ML/MIN BUN/Creatinine Ratio 19.8 Glucose Level 89 MG/DL Calcium Level 8.2 MG/DL Magnesium Level 1.9 MG/DL Total Bilirubin 0.6 MG/DL Aspartate Amino Transf (AST/SGOT) 14 U/L Alanine Aminotransferase (ALT/SGPT) 16 U/L Alkaline Phosphatase 61 IU/L Total Protein 5.8 G/DL Albumin 2.8 G/DL Globulin 3.0 G/DL Albumin/Globulin Ratio 0.9 Chemistry Comments Imaging Carotid Artery U/S Findings: There is moderate to extensive plaque most pronounced within the bilateral car otid bulb/proximal ICA. The following peak systolic velocities were recorded in cm/sec: Right internal carotid: 135 Right common carotid: 90 Right external carotid: 106 Right internal/common carotid ratio: 1.5 Left internal carotid: 166 Left common carotid: 96 Left external carotid: 197 Left internal/common carotid ratio: 1.8 Right vertebral artery: Patent with normal antegrade direction of flow. Left vertebral artery: Patent with normal antegrade direction of flow. Impression: Approximately 50-69% stenosis of the bilateral internal carotid arteries by velocity criteria. Recommend CT angiogram neck to evaluate. Moderate to extensive plaque within the bilateral carotid bulb/proximal ICA. Head CT FINDINGS: There is no evidence for acute intracranial hemorrhage, acute ischemic changes, mass, mass effect, or extra-axial fluid collection. There is no hydrocephalus or midline shift. There is no effacement of the cerebral sulci and basal subarachnoid cisterns. The moody-white matter differentiation is well maintained. The imaged paranasal sinuses are clear. There is an old left thalamic infarct. There has been bilateral cataract extraction. IMPRESSION: No acute intracranial abnormality seen. Old left thalamic infarct. Echo Conclusion Over LVEF is 65%. Normal LV size and function. Mild concentric hypertrophy. RV appears mildly dilated with normal contractility. RVSP is estimated at 43 mmHG. Trileaflet AV is calcified with no significant stenosis. Moderate insufficiency. Mild mitral regurgitation. Trace tricuspid regurgitation. Trace pulmonic insufficiency. There is no pericardial effusion. NECK CTA FINDINGS: The right common carotid artery demonstrates no high-grade stenosis. There is moderate calcification of the right carotid bulb. Right internal carotid artery demonstrates moderate stenosis of the proximal right ICA, approximately 60% stenosis The left common carotid artery demonstrates moderate calcification of the left carotid bulb Left internal carotid artery demonstrates mild, less than 50% stenosis of the proximal left ICA The right vertebral artery demonstrates no high-grade stenosis. The left vertebral artery demonstrates no high-grade stenosis. Small left mastoid effusion. Severe cervical degenerative disc disease. IMPRESSION: Moderate calcification of the bilateral carotid bulbs. Approximately 60% stenosis of the proximal right ICA. Less than 50% stenosis of the proximal left ICA. Small left mastoid effusion. HEAD MRI IMPRESSION: No acute intracranial abnormality seen. No evidence for acute infarct. Mild brain volume loss. Mild chronic small vessel ischemic change. Old left thalamic infarct. Small left mastoid effusion. Bilateral cataract extraction. Chest X-RAY FINDINGS: The cardiac silhouette is large. The lungs demonstrate perihilar and left basilar airspace opacities. The pulmonary vasculature is prominent. Small left pleural effusion. There is no pneumothorax. *Problems/Diagnosis: (1) Syncope Status: Resolved Total Time Spent on D/C: > 30 Minutes Date of Service: Dec 23, 2024 Billing Provider: KAREN MCMAHAN MD Common Visit Codes: 21066-YTA/OBS DISCH DAY >30min Problem Qualifiers (1) Syncope: Syncope type: unspecified Qualified Codes: R55 - Syncope and collapse ZOE GOMES, RES Dec 22, 2024 19:42 KAREN MCMAHAN MD Dec 23, 2024 07:11
== END 2024-12-22 14:40 | disposition home or self-care (01) | DRG 74 ==
LOC: ER 13:00 → PACU 16:14 → EDBEDREQ 19:47 → PCU 3S 20:33
PROVIDERS: ADMIT Internal Medicine; ATTEND Internal Medicine
PROC: 4A00X4Z Measurement of Central Nervous Electrical Activity, External Approach (ICD-10-PCS; principal; 2024-12-20)
PROC: B3251ZZ Computerized Tomography (CT Scan) of Bilateral Common Carotid Arteries using Low Osmolar Contrast (ICD-10-PCS; 2024-12-20)
PROC: B32G1ZZ Computerized Tomography (CT Scan) of Bilateral Vertebral Arteries using Low Osmolar Contrast (ICD-10-PCS; 2024-12-20)
PROC: B3281ZZ Computerized Tomography (CT Scan) of Bilateral Internal Carotid Arteries using Low Osmolar Contrast (ICD-10-PCS; 2024-12-20)
DX: G90.89 Other disorders of autonomic nervous system (principal); Z66 Do not resuscitate; D50.8 Other iron deficiency anemias; R56.9 Unspecified convulsions; I10 Essential (primary) hypertension; I65.23 Occlusion and stenosis of bilateral carotid arteries; E78.5 Hyperlipidemia, unspecified; I48.0 Paroxysmal atrial fibrillation; E87.6 Hypokalemia; N40.0 Benign prostatic hyperplasia without lower urinary tract symptoms; I25.2 Old myocardial infarction; Z86.73 Personal history of transient ischemic attack (TIA), and cerebral infarction without residual deficits
CPT/HCPCS: 36415; 70450; 70498; 70551; 71045; 80048; 80053; 80061; 80305; 81003; 82607; 83036; 83735; 83880; 84443; 84484; 85025; 87081; 93005; 93306; 93880; 95816; 96360; 99285; G0378; J1644; J7030; Q9967